=== PATIENT | male | born 1960 | race Caucasian/White ===

== ENCOUNTER 2017-07-10 16:17 | Inpatient (IN) | payer BC, OTHER ==
[~2017-07-10] VITALS: Ht 182.9 cm; Wt 116.6 kg
[2017-07-10 17:42] LABS: Basophils # (auto) 0.1 uL; Basophils % (auto) 0.6 % (0.0-2.0); Eosinophils # (auto) 0.3 uL; Eosinophils % (auto) 2.5 % (0.0-7.0); Hematocrit 43.9 % (41.0-53.0); Hemoglobin 15.1 g/dL (13.5-17.5); Lymphocytes # (auto) 2.3 uL; Lymphocytes % (auto) 21.5 % (10.0-50.0); Mean Corpuscular Hemoglobin 31.6 pg (28.0-32.0); Mean Corpuscular Hgb Conc. 34.5 g/dL (32.0-36.0); Mean Corpuscular Volume 91.5 fL (80.0-100.0); Monocytes % (auto) 8.9 % (0.0-12.0); Neutrophils # (auto) 7.2 uL; Neutrophils % (auto) 66.5 % (37.0-80.0); Platelet Count (auto) 343 10^3/uL (140-450); Red Blood Cells 4.79 10^6/uL (4.5-5.90); Red Cell Distribution Width 12.6 % (11.8-14.3); White Blood Cell 10.9 10^3/uL (4.4-10.8)
[2017-07-10 17:48] LABS: INR 0.95 (0.9-1.15); Partial Thromboplastin Time 25.5 sec (22.64-33.71); Prothrombin Time 10.4 sec (9.37-12.3)
[2017-07-10 17:53] LABS: Albumin 3.7 g/dL (3.4-5.0); BUN/Creatinine Ratio 14.8; Bilirubin, Total 0.5 mg/dL (0.2-1.0); Calcium 9.1 mg/dL (8.5-10.1); Potassium 3.9 mmol/L (3.5-5.1); Total Protein 8.1 g/dL (6.4-8.2)
[2017-07-10] MEDS ORDERED: ENOXAPARIN SOD 100 MG/1 ML SYRINGE SC ONE (20:30)
[2017-07-10] MEDS ORDERED: IOHEXOL 350 MG/ML 100ML IJ ONE (20:55)
[2017-07-10] MEDS ORDERED: ONDANSETRON HCL 4 MG/2 ML VIAL IV PRN (21:45)
[2017-07-10] MEDS ORDERED: ACETAMINOPHEN 325 MG TAB PO PRN (21:45)
[2017-07-10] MEDS ORDERED: NITROGLYCERIN 0.4 MG SL TAB SL PRN (21:45)
[2017-07-10] MEDS ORDERED: TEMAZEPAM 15 MG CAP PO PRN (21:45)
[2017-07-10] MEDS ORDERED: HYDROcodone-ACET 5/325MG TAB PO PRN (21:45)
[2017-07-10] MEDS ORDERED: MORPHINE SULFATE 4 MG/ML SYR/VIAL IV PRN (21:45)
[2017-07-10] MEDS: FAMOTIDINE 20 MG TAB PO SCH (22:00)
[2017-07-10] MEDS: ATORVASTATIN 20 MG TAB PO SCH (22:00)
[2017-07-10] MEDS ORDERED: WARFARIN SODIUM 5 MG TAB PO ONE (22:45)
[2017-07-10] MEDS: MORPHINE SULFATE 4 MG/ML SYR/VIAL IV PRN (23:39)
[2017-07-11] MEDS: MORPHINE SULFATE 4 MG/ML SYR/VIAL IV PRN ×2 (02:03→15:24)
[2017-07-11 06:36] LABS: Basophils # (auto) 0.1 uL; Basophils % (auto) 0.7 % (0.0-2.0); Eosinophils # (auto) 0.3 uL; Eosinophils % (auto) 3.3 % (0.0-7.0); Hematocrit 40.3 % (41.0-53.0); Lymphocytes # (auto) 2.6 uL; Lymphocytes % (auto) 27.1 % (10.0-50.0); Mean Corpuscular Hemoglobin 31.8 pg (28.0-32.0); Mean Corpuscular Hgb Conc. 34.7 g/dL (32.0-36.0); Mean Corpuscular Volume 91.6 fL (80.0-100.0); Monocytes # (auto) 0.8 uL; Neutrophils # (auto) 5.8 uL; Neutrophils % (auto) 60.9 % (37.0-80.0); Platelet Count (auto) 301 10^3/uL (140-450); Red Cell Distribution Width 12.5 % (11.8-14.3); White Blood Cell 9.5 10^3/uL (4.4-10.8)
[2017-07-11 06:49] LABS: Albumin 3.2 g/dL (3.4-5.0); BUN/Creatinine Ratio 18.3; Bilirubin, Total 0.5 mg/dL (0.2-1.0); Calcium 8.5 mg/dL (8.5-10.1); Total Protein 6.9 g/dL (6.4-8.2)
[2017-07-11] MEDS ORDERED: ENOXAPARIN SOD 120 MG/0.8 ML SYRINGE SC SCH (10:00)
[2017-07-11] MEDS: FAMOTIDINE 20 MG TAB PO SCH ×2 (10:18→22:40)
[2017-07-11] MEDS: LOSARTAN POTASSIUM 25 MG TAB PO SCH (10:18)
[2017-07-11 13:12] LABS: Partial Thromboplastin Time 30.1 sec (22.64-33.71); Prothrombin Time 10.9 sec (9.37-12.3)
[2017-07-11 15:01] VITALS: BP 131/73
[2017-07-11 16:49] VITALS: BP 142/72
[2017-07-11] MEDS ORDERED: WARFARIN SODIUM 10 MG TAB PO ONE (17:00)
[2017-07-11] MEDS: RIVAROXABAN 15 MG TAB PO SCH (18:06)
[2017-07-11 22:00] VITALS: BP 112/66
[2017-07-11] MEDS: ATORVASTATIN 20 MG TAB PO SCH (22:40)
[2017-07-12 05:00] VITALS: BP 127/79
[2017-07-12 07:12] LABS: INR 1.06 (0.9-1.15); Partial Thromboplastin Time 31.2 sec (22.64-33.71); Prothrombin Time 11.6 sec (9.37-12.3)
[2017-07-12 07:17] LABS: Basophils # (auto) 0.1 uL; Basophils % (auto) 0.7 % (0.0-2.0); Eosinophils # (auto) 0.3 uL; Eosinophils % (auto) 3.4 % (0.0-7.0); Hemoglobin 13.6 g/dL (13.5-17.5); Lymphocytes # (auto) 1.8 uL; Lymphocytes % (auto) 24.7 % (10.0-50.0); Mean Corpuscular Hemoglobin 32.2 pg (28.0-32.0); Mean Corpuscular Hgb Conc. 34.9 g/dL (32.0-36.0); Mean Corpuscular Volume 92.3 fL (80.0-100.0); Monocytes # (auto) 0.7 uL; Neutrophils # (auto) 4.5 uL; Neutrophils % (auto) 61.2 % (37.0-80.0); Nucleated Red Blood Cells % 0.1 %; Platelet Count (auto) 307 10^3/uL (140-450); Red Blood Cells 4.22 10^6/uL (4.5-5.90); Red Cell Distribution Width 12.1 % (11.8-14.3); White Blood Cell 7.4 10^3/uL (4.4-10.8)
[2017-07-12 07:24] LABS: BUN/Creatinine Ratio 16.7; Calcium 8.7 mg/dL (8.5-10.1)
[2017-07-12 09:10] VITALS: BP 122/70
[2017-07-12] MEDS: FAMOTIDINE 20 MG TAB PO SCH (09:26)
[2017-07-12] MEDS: RIVAROXABAN 15 MG TAB PO SCH ×2 (09:27→17:56)
[2017-07-12] MEDS: LOSARTAN POTASSIUM 25 MG TAB PO SCH (09:28)
[2017-07-12 11:58] VITALS: BP 125/70
[2017-07-12 15:55] VITALS: BP 125/70
[2017-07-12 17:00] VITALS: BP 119/76
[2017-08-01] MEDS ORDERED: RIVAROXABAN 20 MG TAB PO SCH (18:00)
== END 2017-07-12 18:30 | disposition home or self-care (01) | DRG 300 ==
LOC: ER 16:21 → TELE 16:22 → TELE-WESTW 07-11 15:03
PROVIDERS: ADMIT Nurse Practitioner; ATTEND Internal Medicine
DX: I82.401 Acute embolism and thrombosis of unspecified deep veins of right lower extremity (principal); D68.59 Other primary thrombophilia; E66.9 Obesity, unspecified; I10 Essential (primary) hypertension; E78.5 Hyperlipidemia, unspecified; F32.9 Major depressive disorder, single episode, unspecified; M17.0 Bilateral primary osteoarthritis of knee; Z79.01 Long term (current) use of anticoagulants; Z86.711 Personal history of pulmonary embolism; Z68.34 Body mass index [BMI] 34.0-34.9, adult
CPT/HCPCS: 36415; 71046; 71275; 80048; 80053; 85025; 85379; 85610; 85730; 93005; 93971; 94761; 96374; 96375; J2405